=== PATIENT | female | born 2000 | race Two or more races ===

== ENCOUNTER 2020-02-04 13:15 | Inpatient (IN) | payer OTHER ==
[~2020-02-04] VITALS: Ht 160 cm; Wt 73.0 kg
== END 2020-02-24 14:25 | disposition home or self-care (01) | DRG 807 ==
LOC: LDR 02-22 11:36 → OB/GYN 02-22 11:36 → LDR 02-24 13:15 → OB/GYN 02-24 14:25
PROVIDERS: ADMIT Specialist; ATTEND Specialist
PROC: 10E0XZZ Delivery of Products of Conception, External Approach (ICD-10-PCS; principal; 2020-02-22)
PROC: 0W8NXZZ Division of Female Perineum, External Approach (ICD-10-PCS; 2020-02-22)
PROC: 4A1HXFZ Monitoring of Products of Conception, Cardiac Rhythm, External Approach (ICD-10-PCS; 2020-02-22)
PROC: 3E033VJ Introduction of Other Hormone into Peripheral Vein, Percutaneous Approach (ICD-10-PCS; 2020-02-22)
DX: O76 Abnormality in fetal heart rate and rhythm complicating labor and delivery (principal); Z37.0 Single live birth; Z3A.39 39 weeks gestation of pregnancy

== ENCOUNTER 2020-02-18 10:42 | Outpatient (CLI) | payer OTHER | END 2020-02-18 18:48 | disposition home or self-care (01) | LOC: OBS/DEL 10:42 | PROVIDERS: ATTEND Specialist | DX: O26.893 Other specified pregnancy related conditions, third trimester (principal); U07.1 COVID-19 ==